=== PATIENT | female | born 1990 | race Asian ===

== ENCOUNTER 2021-02-20 11:24 | Emergency (ER) | payer OTHER ==
[~2021-02-20] VITALS: Ht 157.5 cm; Wt 55.0 kg
[2021-02-20] MEDS ORDERED: SODIUM CHLORIDE 0.9% 1,000 ML IV ONE (12:00)
[2021-02-20 12:25] LABS: BASOPHILS % 0.6 % (0.0-2.0); EOSINOPHILS % 2.4 % (0.0-5.0); HEMATOCRIT. 42.6 % (36.0-48.0); HEMOGLOBIN. 14.9 g/dL (12.0-16.0); LYMPHOCYTES % 37.7 % (20.0-50.0); MEAN CORPUSCULAR HEMOGLOBIN 27.9 pg (28.0-32.0); MEAN PLATELET VOLUME 8.2 fl (7.4-10.4); MONOCYTES % 6.8 % (2.0-8.0); NEUTROPHILS % 52.5 % (40.0-76.0); PLATELET 176 x1000/uL (130-400); RED BLOOD CELL COUNT 5.33 mill/uL (4.2-5.4); RED CELL DISTRIBUTION WIDTH 13.1 % (11.6-14.6)
[2021-02-20 12:26] LABS: CHLORIDE 106 mEq/L (98-107)
[2021-02-20 12:28] LABS: PROTHROMBIN TIME 10.9 sec (9.6-11.0)
[2021-02-20] MEDS ORDERED: MECLIZINE 25MG TABLET PO ONE (13:15)
[2021-02-20] MEDS ORDERED: MECL-217 MT (14:15)
[2021-02-20] MEDS ORDERED: IBUPROFEN 400MG TABLET PO ONE (14:15)
[2021-02-20] MEDS ORDERED: ACETAMINOPHEN 325MG TABLET PO ONE (14:15)
[2021-02-20 14:47] VITALS: BP 100/59
== END 2021-02-20 15:10 | disposition home or self-care (01) ==
LOC: ER 11:24
DX: U07.1 COVID-19 (principal); B34.9 Viral infection, unspecified
CPT/HCPCS: 36415; 71045; 80053; 85025; 85610; 93005; 96360; 99285; C9803; J7030; J8597; U0003; U0005